=== PATIENT | male | born 1965 | race Caucasian/White ===

== ENCOUNTER 2025-03-14 07:10 | Emergency (ER) | payer OTHER ==
[2025-03-14] MEDS: Nitroglycerin 0.4 MG Tab.SL SL PRN (07:20)
[2025-03-14] MEDS ORDERED: Naloxone 0.4 MG/ML SDV IVPUSH PRN (07:33)
[2025-03-14] MEDS: Sodium Chloride 0.9% 10 ML Syringe FLUSH PRN (07:42)
[2025-03-14 07:43] LABS: BASOPHILS ABSOLUTE AUTO 0.1 x10-3/uL (0.0-0.3); BASOPHILS PERCENT AUTO 0.4 % (0.3-3.8); EOSINOPHILS ABSOLUTE AUTO 0.1 x10-3/uL (0.0-0.6); EOSINOPHILS PERCENT AUTO 0.9 % (0.1-6.8); LYMPHOCYTES ABSOLUTE AUTO 1.3 x10-3/uL (0.5-4.5); LYMPHOCYTES PERCENT AUTO 11.0 % (15.8-45.3); MEAN PLATELET VOLUME 7.5 fL (6.7-11.0); MONOCYTES ABSOLUTE AUTO 0.4 x10-3/uL (0.0-1.2); MONOCYTES PERCENT AUTO 3.4 % (5.5-15.2); NEUTROPHILS ABSOLUTE AUTO 10.3 x10-3/uL (1.7-6.9); NEUTROPHILS PERCENT AUTO 84.3 % (40.3-71.8); PLATELET COUNT,PLT 320 x10(3)uL (117-477); RED CELL DISTRIBUTION WIDTH 23.3 % (12.4-15.0); WHITE BLOOD CELL COUNT,WBC 12.2 x10-3/uL (3.2-10.1)
[2025-03-14 07:45] LABS: BLOOD UREA NITROGEN,BUN 21 mg/dL (7-18); CARBON DIOXIDE,CO2 25 mmol/L (21-32); CHLORIDE,CL 100 mmol/L (100-110); CREATININE 1.0 mg/dL (0.70-1.30); EST CRCL DRUG DOSING (CG) 74.65 mL/min; ESTIMATED GFR 86 mL/min (>60); GLUCOSE RANDOM 116 mg/dL (80-116); POTASSIUM,K 4.5 mmol/L (3.5-5.3); SODIUM,NA 136 mmol/L (135-145)
[2025-03-14 07:47] LABS: D-DIMER QUANTITATIVE 1.66 mg/LFEU (0.0-0.59); PTT,PARTIAL THROMBOPLSTIN TIME 26.9 SECONDS (24.4-33.2)
[2025-03-14 07:51] LABS: A/G RATIO 0.8; ALANINE AMINOTRANSFERASE,ALT 10 U/L (12-36); ASPARTATE AMNIOTRANSFERASE,AST 36 IU/L (5-25); BILIRUBIN TOTAL 0.5 mg/dL (0.1-1.3); PROTEIN TOTAL,TP 8.7 g/dL (6.0-8.0)
[2025-03-14 07:53] LABS: RED BLOOD CELL COUNT 4.12 x10(6)uL (3.90-5.90)
[2025-03-14 08:11] LABS: INR 0.99 (1.00-1.24)
[2025-03-14 08:19] LABS: PRO B-TYPE NATRIUR PEPT,BNPPRO 48.0 pg/mL (<=125)
[2025-03-14] MEDS: Iopamidol 755 Mg/ML 100 ML Bottle IV SCH (08:34)
[2025-03-14] MEDS: Ketorolac 30 MG/ML SDV IVPUSH ONE (09:13)
== END 2025-03-14 09:20 | disposition home or self-care (01) ==
LOC: FB.ED 07:10
DX: R07.81 Pleurodynia (principal); C41.9 Malignant neoplasm of bone and articular cartilage, unspecified; I10 Essential (primary) hypertension; Z79.01 Long term (current) use of anticoagulants; Z79.899 Other long term (current) drug therapy; Z86.16 Personal history of COVID-19
CPT/HCPCS: 71045; 71275; 71275-26; 80053; 83880; 84484; 85025; 85379; 85610; 85730; 93005; 96374; 96375; 99284-25; A9270-GY; J1885; J2270; Q9967

== ENCOUNTER 2025-04-10 06:58 | Emergency (ER) | payer OTHER ==
[2025-04-10] MEDS ORDERED: Sodium Chloride 0.9% 10 ML Syringe FLUSH PRN (07:41)
[2025-04-10 07:58] LABS: BASOPHILS ABSOLUTE AUTO 0.1 x10-3/uL (0.0-0.3); BASOPHILS PERCENT AUTO 0.9 % (0.3-3.8); EOSINOPHILS ABSOLUTE AUTO 0.1 x10-3/uL (0.0-0.6); EOSINOPHILS PERCENT AUTO 1.7 % (0.1-6.8); LYMPHOCYTES ABSOLUTE AUTO 1.1 x10-3/uL (0.5-4.5); LYMPHOCYTES PERCENT AUTO 14.2 % (15.8-45.3); MEAN PLATELET VOLUME 7.2 fL (6.7-11.0); MONOCYTES ABSOLUTE AUTO 0.7 x10-3/uL (0.0-1.2); MONOCYTES PERCENT AUTO 8.8 % (5.5-15.2); NEUTROPHILS ABSOLUTE AUTO 5.5 x10-3/uL (1.7-6.9); NEUTROPHILS PERCENT AUTO 74.4 % (40.3-71.8); PLATELET COUNT,PLT 467 x10(3)uL (117-477); RED CELL DISTRIBUTION WIDTH 24.1 % (12.4-15.0); WHITE BLOOD CELL COUNT,WBC 7.4 x10-3/uL (3.2-10.1)
[2025-04-10] MEDS: HYDROmorphone 2 MG/ML SDV IVPUSH ONE (07:58)
[2025-04-10] MEDS: Ondansetron 4 MG/2 ML SDV IVPUSH ONE (08:00)
[2025-04-10 08:01] LABS: BLOOD UREA NITROGEN,BUN 10 mg/dL (7-18); CARBON DIOXIDE,CO2 24 mmol/L (21-32); CHLORIDE,CL 104 mmol/L (100-110); CREATININE 0.8 mg/dL (0.70-1.30); EST CRCL DRUG DOSING (CG) 93.32 mL/min; ESTIMATED GFR 101 mL/min (>60); GLUCOSE RANDOM 103 mg/dL (80-116); POTASSIUM,K 4.1 mmol/L (3.5-5.3); SODIUM,NA 140 mmol/L (135-145)
[2025-04-10 08:07] LABS: A/G RATIO 0.7; ALANINE AMINOTRANSFERASE,ALT 8 U/L (12-36); ASPARTATE AMNIOTRANSFERASE,AST 26 IU/L (5-25); BILIRUBIN TOTAL 0.5 mg/dL (0.1-1.3); PROTEIN TOTAL,TP 7.8 g/dL (6.0-8.0)
[2025-04-10 08:09] LABS: RED BLOOD CELL COUNT 3.73 x10(6)uL (3.90-5.90)
[2025-04-10 08:10] LABS: LACTIC ACID 1.1 mmol/L (0.4-2.0)
[2025-04-10 09:38] LABS: GLUCOSE,URINE NORMAL (NORMAL); OCCULT BLOOD,URINE NEGATIVE (NEGATIVE)
[2025-04-10 09:39] LABS: APPEARANCE,URINE CLEAR (CLEAR)
== END 2025-04-10 09:55 | disposition home or self-care (01) ==
LOC: FB.ED 06:58
DX: G89.3 Neoplasm related pain (acute) (chronic) (principal); M54.50 Low back pain, unspecified; K59.01 Slow transit constipation; C79.51 Secondary malignant neoplasm of bone; I10 Essential (primary) hypertension; Z79.899 Other long term (current) drug therapy
CPT/HCPCS: 36415; 74176; 80053; 81003; 83605; 83690; 85025; 96361; 96374; 96375; 99285; J1171; J2405; J7030